=== PATIENT | male | born 1965 ===

== ENCOUNTER 2018-06-25 05:28 | Observation (INO) | payer OTHER ==
[~2018-06-25] VITALS: Ht 175.3 cm; Wt 80.7 kg
[2018-06-25] VITALS (10 sets, daily range): BP systolic 117–151; BP diastolic 78–89
[~2018-06-25 05:28] MED LIST: LISINOPRIL40 MG ORAL; METFORMIN HCL1000 M2 ORAL
[2018-06-25] MEDS ORDERED: EPINEPHrine 1mg/1ml Amp ONE (06:59)
[2018-06-25] MEDS ORDERED: Sterile Water Irrig 1000ml IRRIG ONE (07:00)
[2018-06-25] MEDS ORDERED: Bupivacaine 0.5% Inj 30 ml vial INJ ONE (07:00)
[2018-06-25] MEDS ORDERED: NS Irrig 1000ml ONE (07:00)
[2018-06-25] MEDS ORDERED: Thrombin 5000 units TOPIC ONE (07:00)
[2018-06-25] MEDS ORDERED: Bacitracin 50000 Units Vial ONE (07:00)
[2018-06-25] MEDS ORDERED: LR 1000ml ONE (07:00)
[2018-06-25] MEDS ORDERED: ceFAZolin sod 2 GM in D5W 110 ML IVPB ONE (07:00)
[2018-06-25] MEDS ORDERED: Gelfoam Size TOPIC ONE (07:00)
[2018-06-25] MEDS ORDERED: Midazolam 2mg/2ml Inj ONE (07:04)
[2018-06-25] MEDS ORDERED: fentaNYL 100 mcg/2 mL IV ONE (07:04)
[2018-06-25] MEDS ORDERED: Sodium Chloride 10ml vial INJ ONE (07:06)
[2018-06-25] MEDS ORDERED: Lidocaine 1% MPF 10mg/ml 5ml ONE (07:06)
[2018-06-25] MEDS ORDERED: Propofol 200mg/20ml IV ONE (07:06)
[2018-06-25] MEDS ORDERED: Zemuron 50mg/5ml Inj IV ONE (07:23)
--- NOTE | 2018-06-25 07:27 | Pre-Procedure Note/Attestation ---
Pre-Procedure Note/Attestation Complete Prior to Procedure Procedure Narrative: left L45 microdecompression and laminotomies Indications for Procedure Pre-Operative Diagnosis: lumbar radiculopathy Attestation I attest that I discussed the nature of the procedure; its benefits; risks and complications; and alternatives (and the risks and benefits of such alternatives ), prior to the procedure, with the patient (or the patient's legal quality assurance representative). I attest that, if there was a reasonable possibility of needing a blood transfusion, the patient (or the patient's legal quality assurance representative) was given the [facility] standardized written summary, pursuant to the Scooby Moo Blood Safety Act ([place] Health and Safety Code # 1645, as amended). I attest that I re-evaluated the patient just prior to the surgery and that there has been no change in the patient's H&P, except as documented below: Carlos Isabel MD Jun 25, 2018 07:27
[2018-06-25] MEDS ORDERED: ePHEDrine 50mg/ml Inj ONE (08:01)
[2018-06-25] MEDS ORDERED: LR 1000ml 1,000 ML IVLG SCH (08:39)
[2018-06-25] MEDS ORDERED: fentaNYL 100 mcg/2 mL IV PRN (08:45)
[2018-06-25] MEDS ORDERED: Labetalol 5mg/ml 20ml vial IV PRN (08:45)
[2018-06-25] MEDS ORDERED: Meperidine 50mg/ml Inj(FOR RIGORS ONLY) IVP PRN (08:45)
[2018-06-25] MEDS ORDERED: DiphenhydrAMINE 50mg/ml Inj IVP PRN (08:45)
--- NOTE | 2018-06-25 08:48 | Anethesia Preoperative Eval ---
Anesthesia Pre-op PMH/ROS General Date of Evaluation: Jun 25, 2018 Time of Evaluation: 07:15 Anesthesiologist: dylan ASA Score: ASA 2 Mallampati Score Class I : Soft palate, uvula, fauces, pillars visible Class II: Soft palate, uvula, fauces visible Class III: Soft palate, base of uvula visible Class IV: Only hard plate visible Mallampati Classification: Class III Surgeon: Chalo Diagnosis: Lumbar radiculopathy Surgical Procedure: Laminectomy, microdiscectomy Family History: no anesthesia problems Allergies: Coded Allergies: No Known Allergies (Unverified , 06/22/18) Medications: see eMAR Past Medical History Cardiovascular: Reports: HTN; Denies: CAD, VA, valve dz, arrhythmia, other Pulmonary: Denies: asthma, COPD, NANY, other Gastrointestinal/Genitourinary: Denies: GERD, CRI, ESRD, other Neurologic/Psychiatric: Denies: dementia, CVA, depression/anxiety, TIA, other Endocrine: Denies: DM, hypothyroidism, steroids, other HEENT: Denies: cataract (L), cataract (R), glaucoma, [place] (L), [place] (R), other Hematology/Immune: Denies: anemia, DVT, bleeding disorder, other Musculoskeletal/Integumentary: Denies: OA, RA, DJD, DDD, edema, other PMH Narrative: HTN PSxH Narrative: Eye surgery Anesthesia Pre-op Phys. Exam Physician Exam Last Vital Signs Date Time Temp Pulse Resp B/P (MAP) Pulse Ox O2 Delivery O2 Flow Rate FiO2 06/25/18 06:06 97.6 78 20 130/81 (97) 99 97.6 06/25/18 05:55 Room Air Constitutional: NAD Neurologic: CN 2-12 intact Cardiovascular: RRR, no M/R/G Respiratory: CTA Gastrointestinal: S/NT/ND Airway Exam Mallampati Classification 3 Mallampati Score: Class III MO: full ROM: full Teeth: intact Anesthesia Pre-op A/P Labs WNL Studies Pre-op Studies: EKG - NSR Risk Assessment & Plan Assessment: Controlled hypertensive male for lumbar laminectomy Plan: GETA, [place] scope intubation, SedLine Status Change Before Surgery: No Pre-Antibiotics Drug: Ancef Given Within 1 Hr of Incision: Yes Time Given: 07:45 Scooby Atkins MD Jun 25, 2018 08:48
--- NOTE | 2018-06-25 08:49 | Immediate Post-Op Evaluation ---
Immediate Post-Op Evalulation Immediate Post-Op Evalulation Procedure: Lumbar laminectomy, microdiscectomy Date of Evaluation: Jun 25, 2018 Time of Evaluation: 09:45 IV Fluids: 1600 Estimated Blood Loss: 20 Blood Pressure Systolic: 122 Blood Pressure Diastolic: 78 Pulse Rate: 115 Respiratory Rate: 17 O2 Sat by Pulse Oximetry: 99 Temperature (Fahrenheit): 97.7 Pain Score (1-10): 0 Nausea: No Vomiting: No Complications No complication Patient Status: awake, patent, extubated, none Hydration Status: adequate Drug: Ancef Given Within 1 Hr of Incision: Yes Time Given: 07:45 Scooby Atkins MD Jun 25, 2018 08:49
[2018-06-25] MEDS: Vancomycin 1gm inj IVPB ONE (09:05)
--- NOTE | 2018-06-25 09:22 | Brief Operative Note ---
Immediate Post Operative Note Operative Note Pre-op Diagnosis: lumbar radiculopathy Procedure: L L45 microdecompression Post-op Diagnosis: omkar Post-op Diagnosis: same as pre-op Findings: consistent w/pre-op dx studies Surgeon: ENRRIQUE Associate Director Career Services: YESSY Anesthesiologist: BEV Anesthesia: general Specimen: none Complications: none Condition: stable Fluids: 1600CC Estimated Blood Loss: minimal - 20CC Drains: none Implant(s) used?: No Carlos Isabel MD Jun 25, 2018 09:22
[2018-06-25] MEDS ORDERED: Morphine Sulfate 4mg/ml Inj (IV USE ONLY) IV PRN ×2 (09:30)
[2018-06-25] MEDS ORDERED: HYDROcodone/Acetamin 7.5/325 tab ORAL PRN ×2 (09:30)
[2018-06-25] MEDS ORDERED: Morphine Sulfate 2mg/ml Inj IV PRN (09:30)
[2018-06-25] MEDS ORDERED: Norco 5mg/325mg tab ORAL PRN (09:30)
[2018-06-25] MEDS ORDERED: Naloxone 0.4mg/ml Inj IVP PRN (09:30)
[2018-06-25] MEDS: D5 1/2NS 1,000 ML IV SCH ×2 (10:17→20:17)
--- NOTE | 2018-06-25 11:23 | Diagnostic Imaging Report ---
Indication: Low back pain and left lower extremity pain, intraoperative imaging Technique: Intraoperative imaging Comparison: none Findings: Intraoperative images demonstrate surgical tool posterior to what is presumably L4-5. Impression: Intraoperative imaging, as described
[2018-06-25] MEDS ORDERED: ceFAZolin sod 1 GM in D5W 55 ML IV SCH (15:30)
[2018-06-25] MEDS ORDERED: NovoLOG Insulin Flexpen SUBQ SCH (16:30)
[2018-06-25] MEDS ORDERED: Docusate 100mg cap ORAL SCH (18:00)
[2018-06-25] MEDS ORDERED: metFORMIN 500mg tab ORAL SCH (18:00)
--- NOTE | 2018-06-25 18:30 | Operative Note - Dictated ---
DATE OF OPERATION: 06/25/2018 PREOPERATIVE DIAGNOSES: L4-L5 disk bulge with annular fissure/tear, stenosis, and left lower extremity radiculopathy. POSTOPERATIVE DIAGNOSES: L4-L5 disk bulge with annular fissure/tear, stenosis, and left lower extremity radiculopathy. PROCEDURE PERFORMED: 1. Left-sided L4-L5 inter lumbar laminotomy, medial facetectomy, foraminotomy, and decompression of the traversing left L5 nerve root and the exiting left L4 nerve root. 2. Intraoperative use of microscope for microdissection. 3. Intraoperative use of fluoroscopy. SURGEON: Carlos Isabel M.D. GALLERY MANAGER: None. ANESTHESIA: General endotracheal anesthesia. ANESTHESIOLOGIST: Scooby Atkins M.D. INTRAOPERATIVE FINDINGS: A lateral recess stenosis at left L4-L5 with impingement of the traversing left L5 nerve root with foraminal stenosis of the exiting left L4 nerve root. ESTIMATED BLOOD LOSS: 20 mL. FLUIDS: 1.6 liters of crystalloid. INDICATIONS: This is a pleasant gentleman, who had failed nonoperative treatment and options for above treatment was given. Risks, alternatives, and benefits were discussed with the patient at length. Risks include, but not limited to, anesthesia complications including , medical complications including liver, kidney, and cardiopulmonary deficits, infection, bleeding, neurovascular injury, nerve root injury, pars fracture, instability, reherniation, as well as continued symptoms. The patient signed the consent and wished to proceed. Written and verbal consent was given. OPERATIVE NOTE: The patient was brought to the operating room supine on a stretcher. Subsequently, appropriate IV lines were placed. A 2 g of Ancef was administered. A surgical time-out was called. Anesthesia was induced. The patient was successfully intubated. Sequential compression devices were placed onto the bilateral lower extremities. A Michelle was placed under sterile conditions. The patient was gently turned over on the Jayden frame table. All bony prominences were well padded and the abdomen was assured to lay freely. The L4-L5 interspace was positively identified with lateral fluoroscopy and an indelible marker was used to nagi the midline over the L4-L5 interspace. The patient was prepped and draped in usual sterile fashion with alcohol, chlorhexidine scrub, ChloraPrep, and [place] draping. I was prepped and gowned appropriately as well. At this point, the intraoperatively sterilely draped microscope was brought into the field and with a #15 scalpel, an incision was carried out over the midline over the L4-L5 interspace. With monopolar cautery, subperiosteal dissection was carried out through the dorsal lumbar fascia, elevating the paraspinal muscles and doing a subperiosteal dissection of the laminas on the left side at L4 and L5. The superficial ligamentum was removed. A radiopaque marker was placed at the level of the caudal pedicle. The lateral fluoroscopy was done and the L4-L5 interspace was positively identified by identifying the radiopaque marker at the level of the left L5 pedicle. Once this was done, v belt finisher retractors were set into place. Magnification was increased with the intraoperatively sterilely draped microscope and with the use of a high-speed drill, straight and curved curettes, #2 through #5 Kerrison punches, a medial facetectomy, and inter lumbar laminotomy was carried out. The ligamentum flavum was found to be buckled and hypertrophied causing pressure onto the traversing L5 nerve root as well as the common dural sac causing lateral recess stenosis. The ligamentum flavum was gently peeled off the common dural sac and a total decompression of the lateral recess and centrally in the central aspect of the canal was done with #2 through #5 Kerrison punches. The medial aspect of the superior articular facet was also impinging onto the traversing L5 nerve root. There is mild neural foraminal stenosis for the exiting left L4 nerve root, which was decompressed via curved curette as well as #2 Kerrison punches. A Miller ball was used to probe the foramina and the foramina was found to be patent after the decompression. This was also done with a [place] probe. A skeletonization of the left L5 pedicle was done for a complete decompression of the traversing and exiting L5 nerve root on the left side. At this point, hemostasis was achieved with Gelfoam, thrombin, FloSeal, and bipolar cautery and with a [place] retractor, the coagulated epidural veins were gently medially retracted and a nerve root retractor was used to medially retract the neural elements. The neural elements have migrated posteriorly after the removal of the ligamentum flavum and after the decompression and further probing of the canal, it revealed approximately 2 mm disc bulge, which was not at this time impinging onto the traversing and exiting nerve root and therefore, a decision was made not to do a microdiskectomy. At this point, Valsalva 40 mmHg was done. There was no CSF leak. A complete decompression of the foraminal lateral recess and central canal was done and a complete decompression of the common dural sac and traversing and exiting L4 and L5 nerve roots on the left side was accomplished. The wound was copiously irrigated with triple antibiotic solution. All sponge, needle, and instrument counts were correct. A 1 g of vancomycin powder was placed suprafascially and subfascially. The dorsal lumbar fascia was closed with #1 Vicryl sutures in a watertight interrupted fashion. The subdermal and subcuticular layers were closed with 2-0 Vicryl sutures. All sponge, needle, and instrument counts were correct. The skin was closed with Dermabond. Telfa and Tegaderm was placed. The patient was turned supine, was extubated in stable condition, and was taken to the recovery room in stable condition and was kept in the recovery room for monitoring. The patient was given a prescription for [place], Soma, Naprosyn, and Keflex as well as a follow-up appointment in 7 to 10 days as well as postoperative wound care instructions and postoperative activity instructions. Carlos Isabel M.D. DR: MELODY JOB#: [id number] CC:
[2018-06-26 13:33] VITALS: BP 117/88
--- NOTE | 2018-06-26 13:33 | 48 Hour Post Anesthesia Eval ---
Post Anesthesia Evaluation Procedure: Lumbar laminectomy, microdiscectomy Date of Evaluation: Jun 26, 2018 Time of Evaluation: 13:30 Blood Pressure Systolic: 117 0: 88 Pulse Rate: 88 Respiratory Rate: 20 Temperature (Fahrenheit): 99.1 O2 Sat by Pulse Oximetry: 96 Airway: patent Nausea: No Vomiting: No Pain Intensity: 2 Hydration Status: adequate Cardiopulmonary Status: Stable. Patient has been discharged home Mental Status/LOC: patient returned to baseline Follow-up Care/Observations: As per surgery Post-Anesthesia Complications: No anesthetic complication Follow-up care needed: N/A Scooby Atkins MD Jun 26, 2018 13:33
== END 2018-06-25 20:45 | disposition home or self-care (01) ==
LOC: SDSOVERFLO 05:28 → INTOOBSV 05:28 → 3E 10:16
DX: M54.16 Radiculopathy, lumbar region (principal); I10 Essential (primary) hypertension; E11.9 Type 2 diabetes mellitus without complications; Z87.891 Personal history of nicotine dependence
CPT/HCPCS: 36415; 63047; 72020; 76001; 82962; 86850; 86900; 86901; 87081; 97116; 97161; 97530; G0378; J0171; J0690; J1170; J2250; J2405; J2704; J3010; J3370; J3490; 94003; 94150; J1815